=== PATIENT | female | born 1965 | race Caucasian/White ===

== ENCOUNTER 2016-08-05 18:26 | Inpatient (IN) | payer MEDICARE, OTHER ==
--- NOTE | ~2016-08-05 | DS ---
Unit #: [id number] #: [id number] Patient: SOHA EGAN [id number] [address] [address] [id number] I MR#: [id number] NAME: SOHA EGAN ROOM: 560 Age: 51 Sex: F Admission Date: 08/05/2016 : 1965 Discharge Date: 08/08/2016 Attending Physician: Tomasa Dang M.D. Primary Care Physician: Manish Mcarthur M.D. DISCHARGE SUMMARY FINAL DIAGNOSES 1. Urinary tract infection, secondary to Proteus mirabilis. 2. Decubitus ulcers present on admission. SECONDARY DIAGNOSES 1. Multiple sclerosis. 2. Neurogenic bladder with chronic indwelling Lyons catheter. 3. Peripheral vascular disease. 4. Chronic pain syndrome. 5. Dyslipidemia. 6. Anxiety. 7. Depression. 8. Hypothyroidism. CONSULTS None. HOSPITAL COURSE The patient is a pleasant 51-year-old female with a history of multiple sclerosis, who is legally blind, who was admitted for what looked like foul-smelling urine. She has a history of recurrent UTI with multidrug resistant organisms in urine. She was brought to emergency room for feeling weak with foul-smelling urine. She was found to have a UTI and was admitted. There were no chills, nausea or vomiting at this time. Urine culture did grow Proteus mirabilis. She was started on meropenem. This was later discontinued and patient was put on discharge home with cefepime 500 mg p.o. b.i.d. for seven days. She will be discharged in stable condition with outpatient followup. Decubitus ulcers: She was seen by wound care nurse while she was here. Treatments are in place. DISCHARGE MEDICATIONS 1. Magnesium oxide 400 mg p.o. b.i.d. 2. Florastor 250 mg p.o. b.i.d. for one month. 3. Neurontin 600 mg p.o. three times a day. 4. Celexa 10 mg p.o. at bedtime. 5. Lactobacillus one tablet p.o. daily. 6. Imodium 2 mg p.o. daily as needed for diarrhea. 7. Benadryl 12.5 mg p.o. four times a day. 8. Phenergan 25 mg p.o. q.6 hourly p.r.n. nausea. 9. Hydroxyzine 25 mg p.o. q.i.d. 10. Clonazepam 0.5 mg p.o. at bedtime. 11. Colace 100 mg p.o. b.i.d. Unit #: [id number] #: [id number] Patient: SOHA EGAN 12. Milk of Magnesia p.o. at bedtime. 13. MiraLax 17 g p.o. daily. 14. Zinc oxide 60 g topically apply to effected skin daily. 15. Guaifenesin 600 mg p.o. daily. 16. VESIcare 10 mg p.o. b.i.d. 17. Lipitor 40 mg p.o. daily. 18. Santyl apply to skin topically b.i.d. 19. Reglan 10 mg p.o. b.i.d. 20. Aspirin 81 mg p.o. daily. 21. [place] 7.5/325 p.o. q.6 hourly p.r.n. as needed. 22. Flexeril 10 mg p.o. t.i.d. 23. Levothyroxine 150 mcg p.o. daily. 24. Ascorbic acid 500 mg p.o. daily. FOLLOWUP Follow up with PCP in three to five days. She will be discharged in stable condition. Time spent coordinating discharge about 35 minutes. Dictated by... Jimmie Carvajal TD: 08/08/2016 14:06 JOB #: [id number] DISCHARGE SUMMARY Page 1 of 1 X Tomasa Dang MD X DISCHARGE SUMMARY
--- NOTE | ~2016-08-05 | HP ---
Unit #: [id number] #: [id number] Patient: SOHA EGAN [id number] [address] [address] [id number] I MR#: [id number] NAME: SOHA EGAN ROOM: 07316 Age: 51 Sex: F Admission Date: 08/05/2016 : 1965 Attending Physician: Tomasa Dang M.D. Primary Care Physician: Manish Mcarthur M.D. HISTORY AND PHYSICAL CHIEF COMPLAINT Weakness, foul odor in the urine. DISCUSSION This is a 51-year-old unfortunate lady with past medical history of multiple sclerosis with neurogenic bladder with chronic indwelling Lyons catheter for the last 7 to 8 years, obesity, peripheral vascular disease, dyslipidemia, anxiety, depression, hypothyroidism, chronic pain syndrome, history of recurrent UTI with multi-drug resistant organisms in the urine. She was brought to the emergency room with the chief complaint of feeling weak and foul odor in the urine. On workup she was found to have UTI and is being admitted. She denied chest pain. She denies nausea, vomiting, fever, chills, cough, loss of consciousness or any other complaints. PAST MEDICAL HISTORY 1. History of multiple sclerosis. 2. Neurogenic bladder with chronic indwelling Lyons catheter. 3. Obesity. 4. Peripheral vascular disease. 5. Chronic pain syndrome. 6. Dyslipidemia. 7. Anxiety and depression. 8. Hypothyroidism. PAST SURGICAL HISTORY 1. History of appendectomy. 2. Cholecystectomy. 3. Tubal ligation. 4. Left foot toe amputations. SOCIAL HISTORY She does not smoke. She does not drink alcohol. Denies any other illicit drug use. FAMILY HISTORY Brother is legally blind. Father from [place] at age 56. Mother is alive at 70 years old without any medical problems. MEDICATIONS FROM HOME 1. [place]. 2. Aspirin. 3. Atorvastatin. 4. Celexa. 5. Clonazepam. Unit #: [id number] #: [id number] Patient: SOHA EGAN 6. Flexeril. 7. Benadryl. 8. Colace. 9. Gabapentin. 10. Hydroxyzine. 11. Levothyroxine. 12. Loperamide. 13. Reglan. 14. Promethazine. 15. MiraLAX. REVIEW OF SYSTEMS All review of systems negative except as in history of present illness. PHYSICAL EXAMINATION GENERAL: Middle-aged female lying in bed comfortably, generally not in any distress. CURRENT VITALS: Temperature 97, heart rate 72, respirations 16, blood pressure 118/67. HEENT: Head is normocephalic and atraumatic. NECK: Neck is supple. No JVD. No thyromegaly. LUNGS: Clear to auscultation. No rhonchi. No wheezing. ABDOMEN: Abdomen is soft, nontender, nondistended. Bowel sounds positive. HEART: S1, S2. Regular rate and rhythm. GENITOURINARY: Lyons in place. MUSCULOSKELETAL: General weakness with left foot partial amputation. SKIN: There are multiple area of skin abrasions and pustule areas on the abdominal wall. There is localized edema of the right buttocks on Lyons side. NEUROLOGIC: She is alert, oriented x4. Cranial nerves II-XII intact. PSYCHIATRIC: She is cooperative. Normal mood and affect. DIAGNOSTIC STUDIES LABORATORY WORKUP: UA - Cloudy appearance, positive leukocyte esterase, positive nitrites, WBC 50-100. Sodium 142, potassium 3.7, chloride 104, glucose 131, BUN 17, creatinine 0.7. LFTs within normal limits. Lactic acid level 1.9. INR is 1. CBC - White count 8, hemoglobin 11, hematocrit 35, platelets 313. ASSESSMENT AND PLAN 1. UTI with history of recurrent UTI, multi-drug resistant organisms in the past. Will place the patient on IV Merrem and follow culture. 2. History of multiple sclerosis. Bedbound. She says she uses a walker, also. 3. History of neurogenic bladder with chronic indwelling Lyons catheter for 7 years. 4. Obesity. 5. Peripheral vascular disease. 6. Dyslipidemia. 7. Anxiety and depression. 8. Hypothyroidism. 9. Chronic pain syndrome. 10. DVT prophylaxis. Will place the patient on Lovenox. 1. Dictated by Delvis Brown M.D. Unit #: [id number] #: [id number] Patient: SOHA EGAN PRISCILLA/taz TD: 08/06/2016 08:12 JOB #: [id number] HISTORY AND PHYSICAL Page 1 of 1 X X HISTORY AND PHYSICAL
[~2016-08-05 18:26] MED LIST: ALPRAZOLAM PO; ANTIVERT PO; DECADRON PO; FLEXERIL PO; OYSTER CALCIUM500 MG PO; PHENERGAN PO; STOOL SOFTENER; SYNTHROID PO
[2016-08-05 19:23] LABS: BASOPHIL# 0.1 X10e3 (0-0.3); BASOPHIL% 0.8 % (0-2.5); EOSINOPHIL# 0.4 X10e3 (0-0.7); EOSINOPHIL% 4.5 % (0.0-7.0); HEMATOCRIT 35.4 % (35.0-45.0); HEMOGLOBIN 11.2 gm/dL (12.0-16.0); LYMPHOCYTE# 1.7 X10e3 (1.0-3.5); LYMPHOCYTE% 20.1 % (17.0-45.0); MEAN CELL VOLUME 85.6 FL (83-96); MEAN CORPUSCULAR HEMOGLOBIN 27.2 PG (28-34); MEAN CORPUSCULAR HGB CONC 31.8 g/dL (30-36); MEAN PLATELET VOLUME 7.3 FL (6.5-11.5); MONOCYTE# 0.4 X10e3 (0-1.0); MONOCYTE% 4.6 % (3.0-12.0); PLATELET COUNT 313 X10e3 (140-420); RED BLOOD COUNT 4.13 X10e (3.90-5.30); RED CELL DISTRIBUTION WIDTH 17.3 % (11.0-15.5); WHITE BLOOD COUNT 8.5 X10e3 (4.0-10.5)
[2016-08-05 19:29] LABS: DIFF IND NO
[2016-08-05 19:40] LABS: PARTIAL THROMBOPLASTIN TIME 26.4 SECONDS (23.5-31.3); PROTHROMBIN TIME (PATIENT) 10.7 SECONDS (9.6-11.5)
[2016-08-05 19:49] LABS: ALBUMIN SERUM 3.8 g/dL (3.5-5.0); BILIRUBIN, DIRECT 0.1 mg/dL (0.0-0.2); BILIRUBIN,INDIRECT 0.3 mg/dL (0.0-0.9); BILIRUBIN,TOTAL 0.4 mg/dL (0.2-2.0); BUN/CREATININE RATIO 24.28; CALCIUM SERUM 9.3 mg/dL (8.4-10.2); CREATININE SERUM 0.7 mg/dL (0.6-1.4); GLOM FILT RATE Estimated 101.7 mL/min (>60); POTASSIUM 3.7 mmol/L (3.5-5.1); PROTEIN TOTAL SERUM 7.7 g/dL (6.0-8.3)
[2016-08-05 21:37] LABS: URINE SOURCE CLEAN CATCH
[2016-08-05 21:44] LABS: URINE APPEARANCE CLOUDY; URINE BILIRUBIN NEG (NEG); URINE BLOOD 3+ (NEG); URINE COLOR YELLOW; URINE GLUCOSE NEG (NEG); URINE KETONE NEG (NEG); URINE LEUKOCYTE ESTERASE 3+ (NEG); URINE NITRATE POS (NEG); URINE PH 7.5 (5-8); URINE PROTEIN 1+ (NEG); URINE SPECIFIC GRAVITY 1.013 (1.003-1.035); URINE UROBILINOGEN 0.2 MG/DL (NEG)
[2016-08-05 21:46] LABS: CULTURE INDICATED? YES; URINE BACTERIA AUWI 4+ (NEGATIVE); URINE SQUAMOUS EPITHELIAL CELL OCC /[HPF]; UWBCS1 AUWI 50-100 (0-5)
[2016-08-05] MEDS ORDERED: HYDROCODON-ACE1 EAC9 PO (22:12)
[2016-08-05] MEDS ORDERED: BAYER CHEWABLE81 MG PO (22:13)
[2016-08-05] MEDS ORDERED: LIPITOR40 MG PO (22:13)
[2016-08-05] MEDS ORDERED: ASCORBIC ACID500 M3 PO (22:13)
[2016-08-05] MEDS ORDERED: SANTYL15 G1 TOP (22:14)
[2016-08-05] MEDS ORDERED: CITALOPRAM HBR10 MG PO (22:14)
[2016-08-05] MEDS ORDERED: CLONAZEPAM0.5 MG PO (22:14)
[2016-08-05] MEDS ORDERED: FLEXERIL10 MG PO (22:15)
[2016-08-05] MEDS ORDERED: DOCUSATE SODIU100 MG PO (22:16)
[2016-08-05] MEDS ORDERED: DIPHENYDRAMINE25 MG PO (22:16)
[2016-08-05] MEDS ORDERED: NEURONTIN600 MG PO (22:17)
[2016-08-05] MEDS ORDERED: GUAIFENESIN600 M1 PO (22:18)
[2016-08-05] MEDS ORDERED: HYDROXYZINE HCL25 M1 PO (22:19)
[2016-08-05] MEDS ORDERED: CULTURELLE KID1 EACH PO (22:20)
[2016-08-05] MEDS ORDERED: LEVOTHYROXINE150 MCG PO (22:21)
[2016-08-05] MEDS ORDERED: MILK OF MAGNESIA PO (22:22)
[2016-08-05] MEDS ORDERED: IMODIUM2 MG PO (22:22)
[2016-08-05] MEDS ORDERED: MAG-OX 400400 M1 PO (22:23)
[2016-08-05] MEDS ORDERED: GAVILAX17 GM PO (22:24)
[2016-08-05] MEDS ORDERED: REGLAN10 MG PO (22:24)
[2016-08-05] MEDS ORDERED: DAKIN'S473 M1 MC (22:25)
[2016-08-05] MEDS ORDERED: PHENERGAN25 M1 PO (22:25)
[2016-08-05] MEDS ORDERED: VESICARE PO (22:26)
[2016-08-05] MEDS ORDERED: DESITIN60 GM TOP (22:27)
[2016-08-07 08:58] LABS: BASOPHIL# 0.1 X10e3 (0-0.3); BASOPHIL% 0.7 % (0-2.5); EOSINOPHIL# 0.4 X10e3 (0-0.7); EOSINOPHIL% 6.2 % (0.0-7.0); HEMATOCRIT 32.3 % (35.0-45.0); HEMOGLOBIN 10.3 gm/dL (12.0-16.0); LYMPHOCYTE# 1.3 X10e3 (1.0-3.5); LYMPHOCYTE% 19.2 % (17.0-45.0); MEAN CELL VOLUME 84.8 FL (83-96); MEAN CORPUSCULAR HGB CONC 31.9 g/dL (30-36); MONOCYTE# 0.4 X10e3 (0-1.0); MONOCYTE% 6.2 % (3.0-12.0); NEUTROPHIL# 4.7 X10e3 (1.5-7.1); NEUTROPHIL% 67.7 % (40-75); PLATELET COUNT 267 X10e3 (140-420); RED BLOOD COUNT 3.81 X10e (3.90-5.30); RED CELL DISTRIBUTION WIDTH 17.2 % (11.0-15.5); WHITE BLOOD COUNT 6.9 X10e3 (4.0-10.5)
[2016-08-07 08:59] LABS: DIFF IND NO
[2016-08-07 09:19] LABS: BUN/CREATININE RATIO 18.33; CALCIUM SERUM 8.8 mg/dL (8.4-10.2); CREATININE SERUM 0.6 mg/dL (0.6-1.4); POTASSIUM 4.3 mmol/L (3.5-5.1)
[2016-08-08] MEDS ORDERED: CEFTIN500 MG PO (13:42)
[2016-08-08] MEDS ORDERED: FLORASTORKIDS250 MG PO (13:43)
[2016-08-09 08:47] LABS: HEP C AB (HEPPAN) Nonreactive (Nonreactive); HEP C AB SIGNAL TO CUTOFF 0.06 ratio (<1.00)
[2016-08-25 07:58] LABS: CONFIRMATION NOT INDICATED; HEP B SURFACE AG NONREACTIVE
== END 2016-08-09 09:27 | disposition home or self-care (01) | DRG 689 ==
LOC: CED 18:26 → CEDOF 22:40 → C5B 08-06 11:50
PROVIDERS: Family Medicine; Student in an Organized Health Care Education/Training Program
DX: N39.0 Urinary tract infection, site not specified (principal); L89.153 Pressure ulcer of sacral region, stage 3; G35 Multiple sclerosis; N31.9 Neuromuscular dysfunction of bladder, unspecified; B96.4 Proteus (mirabilis) (morganii) as the cause of diseases classified elsewhere; I73.9 Peripheral vascular disease, unspecified; G89.4 Chronic pain syndrome; E78.5 Hyperlipidemia, unspecified; F32.9 Major depressive disorder, single episode, unspecified; E03.9 Hypothyroidism, unspecified; H54.8 Legal blindness, as defined in USA; E66.9 Obesity, unspecified; Z68.39 Body mass index [BMI] 39.0-39.9, adult; Z74.01 Bed confinement status; Z79.82 Long term (current) use of aspirin; Z87.440 Personal history of urinary (tract) infections; Z90.49 Acquired absence of other specified parts of digestive tract; Z98.51 Tubal ligation status; Z89.422 Acquired absence of other left toe(s); Z82.1 Family history of blindness and visual loss; F41.9 Anxiety disorder, unspecified
CPT/HCPCS: 36415; 80048; 80076; 81003; 82947; 83605; 84460; 85025; 85610; 85730; 86705; 86707; 86803; 87040; 87086; 87088; 87186; 87340; 87350; 87806; 96360; 96361; 99285; J1650; J2185